=== PATIENT | female | born 1970 | race Caucasian/White ===

== ENCOUNTER 2018-02-15 12:51 | Emergency (ER) | payer OTHER ==
[2018-02-15 13:01] VITALS: BP 124/85
[2018-02-15] MEDS ORDERED: IBUPROFEN 600 MG TAB PO ONE ×2 (13:09→13:29)
[2018-02-15] MEDS ORDERED: LET GEL TOPICAL 1 EA SYR TP ONE ×2 (13:09→13:10)
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
== END 2018-02-15 14:20 | disposition home or self-care (01) ==
DX: S66.912A Strain of unspecified muscle, fascia and tendon at wrist and hand level, left hand, initial encounter (principal); S66.911A Strain of unspecified muscle, fascia and tendon at wrist and hand level, right hand, initial encounter; S80.212A Abrasion, left knee, initial encounter; S80.211A Abrasion, right knee, initial encounter; M25.462 Effusion, left knee; M25.461 Effusion, right knee; V18.1XXA Pedal cycle passenger injured in noncollision transport accident in nontraffic accident, initial encounter

== ENCOUNTER 2018-03-24 06:45 | Observation (INO) | payer OTHER ==
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
[2018-03-24] MEDS ORDERED: ceFAZolin 2 GM/DEXTROSE 100 ML IV ONE (06:59)
[2018-03-24] MEDS ORDERED: PREGABALIN 150 MG CAP PO ONE (06:59)
[2018-03-24] MEDS ORDERED: ACETAMINOPHEN 500 MG TAB PO ONE (06:59)
[2018-03-24] MEDS ORDERED: LR 1,000 ML IV ONE (07:00)
[2018-03-24] MEDS ORDERED: MIDAZOLAM 2 MG/2 ML VIAL IVP ONE (07:39)
--- NOTE | 2018-03-24 07:44 | PDANEPAE ---
ANE History of Present Illness 47 year old with torn right labrile hip tear ANE Past Medical History - Cardiovascular History Hx Hypertension: No Hx Arrhythmias: No Hx Chest Pain: No Hx Coronary Artery / Peripheral Vascular Disease: No Hx CHF / Valvular Disease: No Hx Palpitations: No - Pulmonary History Hx COPD: No Hx Asthma/Reactive Airway Disease: No Hx Recent Upper Respiratory Infection: No Hx Oxygen in Use at Home: No Hx Sleep Apnea: No Sleep Apnea Screening Result - Last Documented: Negative - Neurologic History Hx Cerebrovascular Accident: No Hx Seizures: No Hx Dementia: No - Endocrine History Hx Diabetes: No - Renal History Hx Renal Disorders: No - Liver History Hx Hepatic Disorders: No - Neurological & Psychiatric Hx Hx Neurological and Psychiatric Disorders: No - Cancer History Hx Cancer: No - Congenital Disorder History Hx Congenital Disorders: No - GI History Hx Gastrointestinal Disorders: No - Other Health History Other Health History: NEG - Chronic Pain History Chronic Pain: Yes (R HIP) - Surgical History Prior Surgeries: R RTC REPAIR ANE Review of Systems Review of systems is: negative Review of Systems: - Exercise capacity METS (RN): 6 METS ANE Patient History - Allergies Allergies/Adverse Reactions: No Known Allergies Allergy (Verified 02/15/18 12:56) - Home Medications Home medications: home medication list seen and reviewed Home Medications: No Medications [NO HOME MEDICATIONS] 09/24/11 [Last Taken 09/24/11] - NPO status NPO Since - Liquids (Date): 03/24/18 NPO Since - Liquids (Time): 06:45 NPO Since - Solids (Date): 03/23/18 NPO Since - Solids (Time): 19:45 - Anes Hx Anes Hx: no prior problems - Smoking Hx Smoking Status: Never smoked - Alcohol Use Alcohol Use: None - Family Anes Hx Family Hx Anesthesia Complications: NEG ANE Labs/Vital Signs - Vital Signs Blood Pressure: 128/101 Heart Rate: 102 Respiratory Rate: 15 O2 Sat (%): 97 Height: 157.48 cm Weight: 45.359 kg ANE Physical Exam - Airway Neck exam: FROM Mallampati Score: Class 1 Mouth exam: normal dental/mouth exam - Pulmonary Pulmonary: no respiratory distress - Cardiovascular Cardiovascular: regular rate and rhythym - ASA Status ASA Status: II ANE Anesthesia Plan Anesthesia Plan: general endotracheal anesthesia
[2018-03-24] MEDS ORDERED: BUPIVACAINE/EPI 0.25% 30 ML SDV ONE (08:22)
[2018-03-24] MEDS ORDERED: EPINEPHrine 30 MG/30 ML MDV (0.1 MG/0.1 ML) ONE (08:22)
[2018-03-24] MEDS ORDERED: PROPOFOL 200 MG/20 ML VIAL ONE (08:35)
[2018-03-24] MEDS ORDERED: fentaNYL 100 MCG/2 ML INJ ONE ×2 (08:35→14:27)
[2018-03-24] MEDS ORDERED: NALOXONE HCL 0.4 MG/ML INJ IVP PRN (14:13)
[2018-03-24] MEDS ORDERED: HYDROCODONE/APAP 5/325 TAB PO PRN (14:13)
[2018-03-24] MEDS ORDERED: oxyCODONE IR 5 MG TAB PO PRN ×2 (14:13→20:08)
[2018-03-24] MEDS ORDERED: DIAZEPAM 5 MG/ML 1 ML SYR IVP PRN (14:13)
[2018-03-24] MEDS ORDERED: PROMETHAZINE HCL 25 MG/ML INJ IVP PRN ×2 (14:13→20:08)
[2018-03-24] MEDS ORDERED: ONDANSETRON 4 MG/2 ML VIAL IVP PRN ×2 (14:13→20:08)
--- NOTE | 2018-03-24 14:16 | POSTANESTH ---
Post Anesthetic Evaluation Cardiovascular Status: Normal, Stable Respiratory Status: Normal, Stable Level of Consciousness/Mental Status: Can Participate in Eval, Moderately Sleepy Pain Control: Adequate, Prn Tx Ordered Nausea/Vomiting Control: Adequate, Prn Tx Ordered Complications Possibly Related to Anesthesia: None Noted
[2018-03-24] MEDS ORDERED: HYDROCODONE/APAP 5/325 TAB ONE (14:27)
[2018-03-24] MEDS: fentaNYL 100 MCG/2 ML INJ IVP PRN ×2 (14:29→14:36)
[2018-03-24] MEDS ORDERED: HYDROmorphONE/DILAUDID 2 MG/ML INJ ONE (14:49)
[2018-03-24] MEDS: HYDROmorphONE/DILAUDID 2 MG/ML INJ IVP PRN ×2 (14:50→15:02)
[2018-03-24] MEDS ORDERED: oxyCODONE IR 5 MG TAB ONE (15:15)
[2018-03-24] MEDS ORDERED: ONDANSETRON DISINTEGRATING 4 MG TAB PO PRN (20:08)
[2018-03-24] MEDS ORDERED: HYDROmorphONE/DILAUDID 1 MG/ML INJ IVP PRN (20:08)
[2018-03-24] MEDS ORDERED: DIAZEPAM 2 MG TAB PO PRN (21:17)
[2018-03-24] MEDS: NAPROXEN SODIUM 220 MG TAB PO SCH (21:26)
[2018-03-25 07:24] VITALS: BP 90/58
[2018-03-25] MEDS: NAPROXEN SODIUM 220 MG TAB PO SCH (08:32)
--- NOTE | 2018-03-25 12:34 | ASDISCHSUM ---
Discharge Information Plan Status:Home with No Needs Medically Cleared to Leave:03/24/2018 Discharge Date:03/24/2018 CM D/C Disposition:Home, Routine, Self-Care ADT D/C Disposition: Projected Discharge Date:03/24/2018 Transportation at D/C:Family Discharge Delay Reason: Follow-Up Date:03/24/2018 Discharge Slot:1 - 8:01 am - 12:00 noon Final Diagnosis:Acetabular impingement, labral tear, s/p right hip arthroscopy/femoroplasty, right h ip labral repair, post hypoxemia Placement Information Patient Contact Information Contact Name:ALEM Relationship:Friend Address:[address] City:[place] Alternate Phone: State/Zip Code:[place] [address] Email: Financial Information Financial Class:LISA Primary Plan Desc:[facility] Primary Plan Number:[id number] Secondary Plan Desc: Secondary Plan Number: Assessment Information LACE LACE Length of stay for Answers: Less than 1 day current admission Acuity / Level of Answers: No Care: Did the patient have an inpatient admission? Comorbidities - select Answers: Other Notes: Actinic keratosis all that apply # of Emergency department Answers: 1-2 visits in the last 6 months Score: 2 Date Signed: 03/25/2018 10:37 AM Electronically Signed By:Chioma Graham RN [facility] Progress Note CM Note CM Note Notes: Reviewed chart. Pt admitted for a planned right hip arthroscopy, right hip femoroplasty and right hip labral repair. History includes actinic keratosis. No PT/OT evals ordered. Pt is single and lives in [place]. Pt to discharge home independently with no identified needs today. No IM/ZIMMER signed, not applicable. Pt to follow up as directed. CM available for any further issues or concerns. Discharge Plan: Home independently Date Signed: 03/25/2018 10:40 AM Electronically Signed By:Chioma Graham RN Intervention Information
--- NOTE | 2018-03-25 12:38 | ASMTCMCOM ---
CM Note CM Note Notes: Reviewed chart. Pt admitted for a planned right hip arthroscopy, right hip femoroplasty and right hip labral repair. History includes actinic keratosis. No PT/OT evals ordered. Pt is single and lives in [place]. Pt to discharge home independently with no identified needs today. No IM/ZIMMER signed, not applicable. Pt to follow up as directed. CM available for any further issues or concerns. Discharge Plan: Home independently Date Signed: 03/25/2018 10:40 AM Electronically Signed By:Chioma Graham RN
--- NOTE | 2018-03-25 12:38 | ASMTLACE ---
TALATE Length of stay for Answers: Less than 1 day current admission Acuity / Level of Answers: No Care: Did the patient have an inpatient admission? Comorbidities - select Answers: Other Notes: Actinic keratosis all that apply # of Emergency department Answers: 1-2 visits in the last 6 months Score: 2 Date Signed: 03/25/2018 10:37 AM Electronically Signed By:Chioma Graham RN
== END 2018-03-25 11:16 | disposition home or self-care (01) ==
LOC: FSGY 06:45 → F3E 18:51 → F3N 20:06
PROVIDERS: ADMIT Orthopaedic Surgery Sports Medicine; ATTEND Orthopaedic Surgery Sports Medicine
DX: S73.191A Other sprain of right hip, initial encounter (principal); M25.851 Other specified joint disorders, right hip; M51.26 Other intervertebral disc displacement, lumbar region; V19.9XXD Pedal cyclist (driver) (passenger) injured in unspecified traffic accident, subsequent encounter; Y92.9 Unspecified place or not applicable; Y93.55 Activity, bike riding; Y99.9 Unspecified external cause status
CPT/HCPCS: 29914; 29916; 76001; 97116; 97161; G0378; C1713; J0171; J0690; J1170; J2250; J2704; J3010

== ENCOUNTER → 2018-06-16 | Outpatient (CLI) | payer OTHER | LOC: BMCIMAGING 14:07 | PROVIDERS: ATTEND Internal Medicine | DX: Z13.820 Encounter for screening for osteoporosis (principal); Z78.0 Asymptomatic menopausal state ==

== ENCOUNTER → 2018-09-01 | Outpatient (CLI) | payer OTHER | LOC: FIMAGING 19:33 ==

== ENCOUNTER 2018-09-12 12:40 | Emergency (ER) | payer OTHER | END 2018-09-12 14:39 | disposition home or self-care (01) ==

== ENCOUNTER → 2018-09-22 | Outpatient (CLI) | payer OTHER | LOC: FIMAGING 15:34 ==